=== PATIENT | male | born 1985 | race Caucasian/White ===

== ENCOUNTER 2016-05-10 05:24 | Emergency (ER) | payer SELFPAY ==
[2016-05-10 05:34] VITALS: BP 136/79
[2016-05-10] MEDS ORDERED: IBUPROFEN 400 MG TABLET PO ONE (05:50)
--- NOTE | 2016-05-10 05:57 | ERNOTE ---
Lower Extremity HPI - General Lower Extremities Pain: ankle: right Time Seen by Provider: 05/10/16 05:25 Source: patient Exam Limitations: no limitations - Immun/Allergies/Home Medications Immunizations: IMMUNIZATION HX Immunizations Up to Date Yes History of Influenza Vaccine Yes Hx Pneumococcal Vaccination No Allergies/Adverse Reactions: Allergies Allergy/AdvReac Type Severity Reaction Status Date / Time No Known Allergies Allergy Verified 05/10/16 05:35 Home Medications: HOME MEDICATIONS Ibuprofen [Motrin] 800 mg PO TID PRN #60 tab 05/10/16 [Last Taken Unknown] - History of Present Illness Narrative: Patient had surgery for an injury on his right ankle two years ago. Yesterday during work (17:00) he was pushing heavy equipment and felt a pop in his ankle, no twisting or any other definite injury. He had some pain after that but the pain was much worse when he got up this morning, has not taken any pain medication yet Occurred: yesterday Location of Incident: work Method of Injury: Reports: no apparent injury, other Associated Symptoms: Denies: unable to bear weight Other Injuries: Reports: none Subsequent Symptoms: Denies: sensory loss, numbness Review of Systems - Review of Systems Constitutional: Absent: recent illness, fever ENT: Absent: nose congestion, sore throat Respiratory: Present: cough. Absent: shortness of breath Cardiology: Absent: chest pain Gastrointestinal/Abdominal: Absent: nausea, vomiting, abdominal pain Genitourinary: Present: no symptoms reported Musculoskeletal: Present: See HPI Neurological: Absent: weakness, numbness - Patient's Past Medical History Patient History - Medical: Migraines Patient History - Cardiac/Respiratory: No pertinent hx Patient History - Cancer: No Hx of Cancer Patient History - Surgical Procedures: Other Patient History - Other: None - Family History Mother Family History - Medical: Diabetes Type 2, Migraines Family History - Cardiac/Respiratory: Coronary Heart Disease, Hyperlipidemia - Social History Living Situations: home Abuse History: No History of abuse Psych History: No pertinent hx Smoking Status: Current every day smoker Have you smoked in the past 12 months: Yes Do you dip or chew tobacco: No Alcohol Use: occasionally Drug Use: none - Immunizations Immunizations Up to Date: Yes Hx Pneumococcal Vaccination: No History of Influenza Vaccine: Yes Physical Exam - Physical Exam General Appearance: Present: wd/wn, alert, no apparent distress Respiratory: Present: no respiratory distress, lungs clear, decreased breath sounds Cardiovascular/Chest: Present: regular rate, rhythm, no murmur Extremity Exam: Present: normal except -, other - right ankle swollen, tender over both malleolus, pain on ROM, decreased ROM, no deformities Neurological Exam: Present: alert, oriented, normal mood/affect, no motor/ sensory deficits Skin Exam: Present: normal color, warm/dry ED Progress - Vital Signs Patient's Vital Signs:: I have reviewed the patient's vital signs. Vital Signs: Vital Signs 05/10/16 05:24 Temperature 36.8 C Pulse Rate 89 Respiratory 18 Rate Blood Pressure 136/79 O2 Sat by Pulse 96 Oximetry - X-Ray X-Ray #1 X-Ray: ankle - hardware, DJD, no fracture Interpretation: Interp. by me - Progress/Reassessment Chief Complaint: Ankle Injury/ Pain Progress Note-Subjective: 05/10/16 06:33 discussed xray results and need for follow up with ortho Departure Clinical Impression: Right ankle sprain Qualifiers: Encounter type: initial encounter Involved ligament of ankle: unspecified ligament Qualified Code(s): S93.401A - Sprain of unspecified ligament of right ankle, initial encounter - Departure Disposition: Home self-care Condition: Good Instructions: Ankle Sprain, [id number], Form - Excuse from Work, School, or Physical Activity Additional Instructions: call Dr Barrow for follow up Referrals: Leon Barrow MD [Staff Physician] - Prescriptions: Ibuprofen [Motrin] 800 mg PO TID PRN #60 tab PRN Reason: Pain
[2016-05-10] MEDS ORDERED: IBUPROFEN 400 MG TABLET ONE (06:04)
--- OUTSIDE RECORDS SUMMARY | 2016-05-10 06:21 | XMS REPORT | Continuity of Care Document ---
:1985 Author Organization [facility] Address [address] [place] [address] Phone [phone] Care Team Providers Name Role Phone Unavailable Primary Care Provider Unavailable Source Comments This disclosure is being made pursuant to the Care Everywhere program, applicable federal and state laws, and may not contain all informaitonavailable regarding this patient.[facility] ([facility] Active Allergies and Adverse Reactions Not on File Current Medications Not on file Active Problems Not on file Social History Tobacco Use Types Packs/Day Years Used Date Never Assessed Plan of Care Health Maintenance Due Date Last Done Comments Hepatitis B Vaccine (1 of 3 - Primary Series) 1985 Tdap Vaccine 1994 Lipid Disorder Screening 2001 MMR Vaccine 2001 Td Vaccine 2001 Varicella Vaccine (1 of 2 - Adult - No Evidence of 2001 Immunity) Influenza Vaccine: Seasonal (#1) 09/28/2015 Results from Last 3 Months Not on file
== END 2016-05-10 06:53 | disposition home or self-care (01) ==
LOC: ER 05:24
DX: S93.401A Sprain of unspecified ligament of right ankle, initial encounter (principal); Z72.0 Tobacco use; X58.XXXA Exposure to other specified factors, initial encounter; Y93.89 Activity, other specified; Y92.9 Unspecified place or not applicable; Y99.0 Civilian activity done for income or pay

== ENCOUNTER 2016-12-25 18:07 | Emergency (ER) | payer SELFPAY ==
[2016-12-25] MEDS ORDERED: NAPROXEN SODIUM 550 MG TABLET PO ONE (18:43)
[2016-12-25] MEDS ORDERED: NAPROXEN SODIUM 550 MG TABLET ONE (18:45)
--- NOTE | 2016-12-25 18:55 | ERNOTE ---
Upper Extremity HPI - Narrative Date of Service: 12/25/16 - General Extremities Pain Location: elbow: right Time Seen by Provider: 12/25/16 18:36 Source: patient Exam Limitations: no limitations - Immun/Allergies/Home Medications Immunizations: IMMUNIZATION HX Immunizations Up to Date Yes History of Influenza Vaccine No Hx Pneumococcal Vaccination No Allergies/Adverse Reactions: Allergies Allergy/AdvReac Type Severity Reaction Status Date / Time No Known Allergies Allergy Verified 12/25/16 18:23 Home Medications: HOME MEDICATIONS Ibuprofen [Motrin] 800 mg PO TID PRN #60 tab 05/10/16 [Last Taken Unknown] Naproxen [Naprosyn] 500 mg PO BID PRN #60 tab 12/25/16 [Last Taken Unknown] - History of Present Illness Narrative: Pt. comes in with c/o R elbow pain after getting his arm stuck between the door jam and a couch he was helping to move yesterday. Pt. denies ny SOB, CP, NVD, fever, recent illness or injury. Pt. denies any alleviating factors but states that movement exacerbates the pain. Review of Systems - Review of Systems Constitutional: Present: no symptoms reported. Absent: recent illness, fever, chills, weakness, fatigue, malaise EYE: Present: no symptoms reported ENT: Present: no symptoms reported Respiratory: Present: no symptoms reported. Absent: shortness of breath, cough , wheezing Cardiology: Present: no symptoms reported. Absent: chest pain, palpitations, edema Musculoskeletal: Present: joint pain - R distal elbow. Absent: back pain Skin: Present: no symptoms reported. Absent: rash, change in hair/nails Neurological: Present: no symptoms reported. Absent: headache, dizziness/light- headedness, numbness, tingling All Other Systems: All systems neg except as marked - Patient's Past Medical History Patient History - Medical: Migraines Patient History - Cardiac/Respiratory: No pertinent hx Patient History - Cancer: No Hx of Cancer Patient History - Surgical Procedures: Hernia Repair, Orthopedic Patient History - Other: None - Family History Mother Family History - Medical: Diabetes Type 2, Migraines Family History - Cardiac/Respiratory: Coronary Heart Disease, Hyperlipidemia - Social History Abuse History: No History of abuse Psych History: No pertinent hx Smoking Status: Current every day smoker Have you smoked in the past 12 months: Yes - Immunizations Immunizations Up to Date: Yes Hx Pneumococcal Vaccination: No History of Influenza Vaccine: No Physical Exam - Physical Exam General Appearance: Present: wd/wn, alert, no apparent distress Head Exam: Present: normal inspection, no evidence of injury Eye Exam: Normal inspection: bilateral, PERRL: bilateral, EOMI: bilateral Respiratory: Present: no respiratory distress, normal breath sounds, no accessory muscle use, chest nontender, lungs clear Cardiovascular/Chest: Present: regular rate, rhythm, no murmur, normal peripheral pulses Back Exam: Present: normal inspection Extremity Exam: Present: normal range of motion, no edema, bony tenderness - prox ulna Neurological Exam: Present: alert, oriented, normal mood/affect, no motor/ sensory deficits Skin Exam: Present: normal color, warm/dry. Absent: pallor, skin rash ED Progress - Vital Signs Patient's Vital Signs:: I have reviewed the patient's vital signs. Vital Signs: Vital Signs 12/25/16 18:20 Temperature 37.2 C Pulse Rate 91 Respiratory 13 Rate Blood Pressure 157/91 O2 Sat by Pulse 97 Oximetry - X-Ray X-Ray #1 X-Ray: elbow Interpretation: Reviewed by me X-ray Comments: No ovious osseous abnormality. - Progress/Reassessment Chief Complaint: Upper Extremity Injury/Problem Departure Clinical Impression: Forearm sprain Qualifiers: Encounter type: initial encounter Laterality: right Qualified Code(s): S63.501A - Unspecified sprain of right wrist, initial encounter - Departure Disposition: Home self-care Condition: Good Instructions: Form - Excuse from Work, School, or Physical Activity, RICE for Routine Care of Injuries, [id number] Additional Instructions: Please follow up with orthopedics if not improved in 2-3 days. Prescriptions: Naproxen [Naprosyn] 500 mg PO BID PRN #60 tab PRN Reason: Pain
[2016-12-25 19:08] VITALS: BP 146/78
== END 2016-12-25 19:04 | disposition home or self-care (01) ==
LOC: ER 18:07
DX: S63.501A Unspecified sprain of right wrist, initial encounter (principal); X58.XXXA Exposure to other specified factors, initial encounter; Y93.89 Activity, other specified; Y92.009 Unspecified place in unspecified non-institutional (private) residence as the place of occurrence of the external cause; F17.200 Nicotine dependence, unspecified, uncomplicated

== ENCOUNTER 2017-01-09 10:13 | Emergency (ER) | payer SELFPAY ==
--- NOTE | 2017-01-09 10:35 | ERNOTE ---
Upper Extremity HPI - General Extremities Pain Location: 5th finger: right Time Seen by Provider: 01/09/17 10:28 Source: patient Exam Limitations: no limitations - Immun/Allergies/Home Medications Immunizations: IMMUNIZATION HX Immunizations Up to Date Yes History of Influenza Vaccine No Hx Pneumococcal Vaccination No Allergies/Adverse Reactions: Allergies Allergy/AdvReac Type Severity Reaction Status Date / Time No Known Allergies Allergy Verified 01/09/17 10:27 Home Medications: HOME MEDICATIONS Ibuprofen [Motrin] 800 mg PO TID PRN #60 tab 01/09/17 [Last Taken Unknown] - History of Present Illness Narrative: Patient was moving a pool table yesterday and sustained a crush injury to his right distal finger, he sustained a nail hematoma and his finger has been throbbing all night, denies any other injury Date (Duration): 01/08/17 Occurred: yesterday Location of Incident: home Method of Injury: Reports: direct blow Loss of Consciousness: Reports: no loss of consciousness Modifying Factors - (Improves): Reports: other - elevation Modifying Factors - (Worsens): Reports: other - touch Associated Symptoms: Denies: tingling, weakness Other Injuries: Reports: none Prior Treament: Denies: recently seen, similar symptoms before Review of Systems - Review of Systems Constitutional: Absent: recent illness, fever EYE: Absent: double vision ENT: Absent: sore throat Respiratory: Absent: shortness of breath Cardiology: Absent: chest pain Gastrointestinal/Abdominal: Present: no symptoms reported Genitourinary: Present: no symptoms reported Musculoskeletal: Present: See HPI Neurological: Absent: weakness, numbness - Patient's Past Medical History Patient History - Medical: Migraines Patient History - Cardiac/Respiratory: No pertinent hx Patient History - Cancer: No Hx of Cancer Patient History - Surgical Procedures: Hernia Repair, Orthopedic Patient History - Other: None - Family History Mother Family History - Medical: Diabetes Type 2, Migraines Family History - Cardiac/Respiratory: Coronary Heart Disease, Hyperlipidemia - Social History Living Situations: home Abuse History: No History of abuse Psych History: No pertinent hx Smoking Status: Current every day smoker Have you smoked in the past 12 months: Yes Alcohol Use: rarely Drug Use: none - Immunizations Immunizations Up to Date: Yes Hx Pneumococcal Vaccination: No History of Influenza Vaccine: No Physical Exam - Physical Exam General Appearance: Present: wd/wn, alert, no apparent distress Respiratory: Present: no respiratory distress, normal breath sounds, no accessory muscle use, lungs clear Cardiovascular/Chest: Present: regular rate, rhythm, no murmur Extremity Exam: Present: normal except - - right 5th finger: hematoma under proximal third of nail, diffuse swelling and tenderness over distal and middle phalanx, no deformities, no skin wound, decreased flexion (due to swelling) Neurological Exam: Present: alert, oriented, normal mood/affect Skin Exam: Present: normal color, warm/dry ED Progress - Vital Signs Patient's Vital Signs:: I have reviewed the patient's vital signs. Vital Signs: Vital Signs 01/09/17 10:24 Temperature 36.6 C Pulse Rate 88 Respiratory 20 Rate Blood Pressure 145/97 O2 Sat by Pulse 97 Oximetry - Progress/Reassessment Chief Complaint: Hand Injury/Pain Progress Note-Subjective: 01/09/17 11:[address] Haile: if converting tuft fracture into open fracture by draining nail hematoma will need antibiotics for prophylaxis discussed options with patient, does not want nail hematoma drained, will treat with splint for protection Departure Clinical Impression: Closed fracture of tuft of distal phalanx of finger - Departure Disposition: Home self-care Condition: Good Instructions: Crush Injury, Fingers or Toes, [id number] Additional Instructions: wear the splint for comfort, follow up with Dr Haile if not getting better over the next few days Referrals: Neville Haile MD [Staff Physician] - Prescriptions: Ibuprofen [Motrin] 800 mg PO TID PRN #60 tab PRN Reason: Pain
[2017-01-09 12:01] VITALS: BP 143/91
== END 2017-01-09 11:26 | disposition home or self-care (01) ==
LOC: ER 10:13
PROC: 2W3JX1Z Immobilization of Right Finger using Splint (ICD-10-PCS; principal; 2017-01-09)
DX: M84.444A Pathological fracture, right finger(s), initial encounter for fracture (principal); X58.XXXA Exposure to other specified factors, initial encounter; Y93.89 Activity, other specified; Y92.009 Unspecified place in unspecified non-institutional (private) residence as the place of occurrence of the external cause